=== PATIENT | female | born 1980 | race Caucasian/White ===

== ENCOUNTER 2016-03-12 05:33 | Day surgery (SDC) | payer BC ==
[~2016-03-12] VITALS: Ht 172.7 cm; Wt 83.5 kg
[~2016-03-12 05:33] MED LIST: BENTYL20 MG PO; ENDOCET 5-3251 EACH PO; LORTAB 5-325 M1 EACH PO; Motrin PO; PRILOSEC OTC20 MG PO
[2016-03-12 05:55] VITALS: BP 100/61
[2016-03-12] MEDS ORDERED: NORCO 5/3251 TABLET PO (09:05)
[2016-03-12] MEDS ORDERED: COLACE100 MG PO (09:05)
[2016-03-12 10:28] VITALS: BP 120/83
[2016-03-12 11:17] VITALS: BP 117/77
== END 2016-03-12 11:24 | disposition home or self-care (01) ==
LOC: SDC 05:33
PROC: 0FT44ZZ Resection of Gallbladder, Percutaneous Endoscopic Approach (ICD-10-PCS; principal; 2016-03-12)
DX: K80.10 Calculus of gallbladder with chronic cholecystitis without obstruction (principal); F17.200 Nicotine dependence, unspecified, uncomplicated
CPT/HCPCS: 88304; J0330; J1100; J1170; J2175; J2250; J2405; J3010